=== PATIENT | male | born 1985 | race African-American/Black ===

== ENCOUNTER 2024-03-24 12:22 | Inpatient (IN) | payer OTHER ==
[2024-03-24 12:48] VITALS: BMI 21.2
[2024-03-24] MEDS ORDERED: NICOTINE POLACRILEX 2 MG LOZENGE BC PRN (13:13)
[2024-03-24] MEDS ORDERED: ACETAMINOPHEN 325 MG TABLET (FP) PO PRN (13:13)
[2024-03-24] MEDS ORDERED: BENZONATATE 200 MG CAPSULE PO PRN (13:13)
[2024-03-24] MEDS ORDERED: LOPERAMIDE HCL 2 MG CAPSULE PO PRN (13:13)
[2024-03-24] MEDS ORDERED: BISMUTH SUBSALICYLATE 262 MG/15 ML BTL PO PRN (13:13)
[2024-03-24] MEDS ORDERED: POLYETHYLENE GLYCOL (HEALTHYLAX) 3350 17 GM PACKET PO PRN (13:13)
[2024-03-24] MEDS ORDERED: NICOTINE POLACRILEX 2 MG GUM BUC PRN (13:13)
[2024-03-24] MEDS ORDERED: IBUPROFEN 400 MG TABLET (FP) PO PRN (13:13)
[2024-03-24] MEDS ORDERED: DICYCLOMINE HCL 10 MG CAPSULE PO PRN (13:13)
[2024-03-24] MEDS ORDERED: BENZOCAINE/MENTHOL (CHLORASEPTIC ) LOZENGE MM PRN (13:13)
[2024-03-24] MEDS ORDERED: IBUPROFEN 600 MG TABLET (FP) PO PRN (13:13)
[2024-03-24] MEDS ORDERED: NALOXONE (NARCAN) HCL 4 MG/0.1 ML SPRAY NS PRN (13:13)
[2024-03-24] MEDS ORDERED: MAGNESIUM HYDROX 2400MG/30ML ORAL SUSPENSION 30 ML CUP PO PRN (13:13)
[2024-03-24] MEDS ORDERED: MAG HYDROX/AL HYDROX/SIMETH 30 ML UNIT-DOSE CUP PO PRN (13:13)
[2024-03-24] MEDS: guaiFENesin 600 MG TABLET.ER (FP) PO PRN (15:48)
[2024-03-24] MEDS: METHOCARBAMOL 500 MG TABLET PO PRN (15:48)
[2024-03-24] MEDS: hydrOXYzine PAMOATE 25 MG CAPSULE (FP) PO PRN (15:48)
[2024-03-24] MEDS: ONDANSETRON *ODT* 4 MG TABLET SL PRN (22:30)
[2024-03-24] MEDS: THIAMINE 100 MG TABLET PO SCH (22:31)
[2024-03-24] MEDS: MELATONIN 5 MG TABLETS PO SCH (22:50)
[2024-03-25] MEDS ORDERED: chlordiazePOXIDE HCL 25 MG CAPSULE PO PRN (08:56)
[2024-03-25] MEDS: chlordiazePOXIDE HCL 25 MG CAPSULE PO SCH (10:25)
[2024-03-25] MEDS: PRENATAL VITAMINS W/ FOLIC ACID TABLET (FP) PO SCH (10:25)
[2024-03-25] MEDS: FOLIC ACID 1 MG TABLET (FP) PO SCH (10:25)
[2024-03-25 10:43] LABS: POTASSIUM 3.9 mmol/L (3.5-5.1)
[2024-03-25 10:49] LABS: BLOOD UREA NITROGEN 8.6 mg/dL (7-18); HEMATOCRIT 43.9 % (35.4-49); HEMOGLOBIN 15.1 GM/dL (11.7-16.9); MCHC 34.3 g/dl (32.0-35.9); MEAN CELL VOLUME 99.1 fl (80-96); MEAN PLT VOLUME 7.6 fl (7.5-11.1); PLATELET COUNT 345 10^3/uL (134-434); RBC 4.44 M/mm3 (4.00-5.60); RDW 13.5 % (11.9-15.9); WHITE BLOOD COUNT 8.4 K/mm3 (4.0-10.0)
[2024-03-25 10:52] LABS: CREATININE 0.9 mg/dL (0.55-1.3)
[2024-03-25 10:53] LABS: BILIRUBIN,TOTAL 0.6 mg/dL (0.2-1); TOT PROT 6.4 g/dl (6.4-8.2)
[2024-03-25] MEDS: MIRTAZAPINE 15 MG TABLET (FP) PO SCH (22:14)
[2024-03-27] MEDS: chlordiazePOXIDE HCL 25 MG CAPSULE PO SCH (05:45)
[2024-03-27] MEDS: NALTREXONE HCL 50 MG TABLET PO SCH (12:52)
[2024-03-28] MEDS ORDERED: chlordiazePOXIDE HCL 10 MG CAPSULE PO PRN
[2024-03-28] MEDS: chlordiazePOXIDE HCL 10 MG CAPSULE PO SCH (05:27)
[2024-03-29] MEDS: chlordiazePOXIDE HCL 10 MG CAPSULE PO SCH (05:57)
[2024-03-29] MEDS: NALOXONE (NYS OPIOID OVERDOSE PROGRAM) 4 MG/0.1 ML SPRAY NS SCH (15:29)
[2024-03-30] MEDS: chlordiazePOXIDE HCL 10 MG CAPSULE PO ONE (06:00)
[2024-03-30 08:53] VITALS: BP 106/70; PULSE 79; RESP 18; TEMP 97.7
== END 2024-03-30 10:00 | disposition other institution (70) | DRG 897 ==
LOC: YASAS 12:22 → Y6N 14:08
PROVIDERS: ADMIT Allergy & Immunology; ATTEND Surgery
PROC: HZ2ZZZZ Detoxification Services for Substance Abuse Treatment (ICD-10-PCS; principal; 2024-03-24)
DX: F10.230 Alcohol dependence with withdrawal, uncomplicated (principal); F14.20 Cocaine dependence, uncomplicated; F19.282 Other psychoactive substance dependence with psychoactive substance-induced sleep disorder; F19.24 Other psychoactive substance dependence with psychoactive substance-induced mood disorder; F32.A Depression, unspecified; F41.9 Anxiety disorder, unspecified; G47.00 Insomnia, unspecified; Z91.410 Personal history of adult physical and sexual abuse; Z63.0 Problems in relationship with spouse or partner; Z87.891 Personal history of nicotine dependence
CPT/HCPCS: 36415; 80053; 83036; 85027; 86780; 93005; 93010; Q0162